=== PATIENT | male | born 1975 | race Caucasian/White ===

== ENCOUNTER 2021-02-25 21:12 | Emergency (ER) | payer OTHER ==
[~2021-02-25] VITALS: Ht 188 cm; Wt 120.2 kg
[2021-02-26 00:06] VITALS: BP 135/85
== END 2021-02-25 23:58 | disposition home or self-care (01) ==
LOC: ER 21:14
DX: L03.115 Cellulitis of right lower limb (principal); R59.9 Enlarged lymph nodes, unspecified; E66.9 Obesity, unspecified; Z68.34 Body mass index [BMI] 34.0-34.9, adult
CPT/HCPCS: 93971